=== PATIENT | female | born 1950 | race Caucasian/White ===

== ENCOUNTER 2017-12-24 08:23 | Outpatient (CLI) | payer MEDICARE ==
--- NOTE | 2017-12-24 11:52 | BD ---
DEXA BONE DENSITOMETRY: (Dual energy X-ray Absorptiometry) Date: 12/24/17 HISTORY: 67-year-old postmenopausal white female presents for baseline, age-related osteoporosis screening theea bree. Age of menopause: 55 years. Height: 62. Weight: 248 lbs. COMPARISON: None available. FINDINGS: The bone mineral density (BMD) is given in grams per square centimeter (g/cm2): LUMBAR SPINE: BMD(g/cm2) T-score Z-score L1: 1.010 0.2 2.0 L2: 1.067 0.4 2.4 L3: 1.053 -0.3 1.9 L4: 1.090 0.3 2.5 Total: 1.057 0.1 2.2 HIP: Femoral neck: 0.685 -1.5 0.3 Total: 0.948 0.0 1.5 FRAX WHO Fracture Risk Assessment Tool: 10 Year Fracture Risk * Major osteoporotic fracture: 20% Hip fracture: 2.8% Reported Risk Factors: [place](), Neck BMD=0.685, BMI=45.4, previous fracture, and glucocorticoid use. * Fracture probability is calculated for an untreated patient. Fracture probability may be lower if the patient has received treatment. IMPRESSION: 1. The mean bone mineral density of the lumbar spine is normal. Fracture risk is not increased. 2. The bone mineral density of the femoral neck is osteopenic. Fracture risk is increased. JN R POS: CET
== END 2017-12-24 08:24 | disposition home or self-care (01) ==
LOC: BICMAMMO 08:23
PROVIDERS: ATTEND Internal Medicine
DX: Z12.31 Encounter for screening mammogram for malignant neoplasm of breast (principal); Z13.820 Encounter for screening for osteoporosis; M85.88 Other specified disorders of bone density and structure, other site
CPT/HCPCS: 77063; 77067; 77080

== ENCOUNTER 2021-10-18 09:31 | Outpatient (CLI) | payer MEDICARE, OTHER | END 2021-10-18 09:32 | disposition home or self-care (01) | LOC: BICMRI 09:31 | PROVIDERS: ATTEND Family Medicine | DX: R92.8 Other abnormal and inconclusive findings on diagnostic imaging of breast (principal) | CPT/HCPCS: 82565; C8908; A9577 ==